=== PATIENT | male | born 1985 | race Caucasian/White ===

== ENCOUNTER 2025-02-05 14:10 | Emergency (ER) | payer SELFPAY ==
[~2025-02-05] VITALS: Ht 167.6 cm; Wt 111.0 kg
[2025-02-05 14:19] VITALS: BP 151/67; PULSE 113; RESP 17; TEMP 98.2; O2SAT 94
== END 2025-02-05 16:26 | disposition left against medical advice (07) ==
LOC: ER 14:10
DX: S80.862A Insect bite (nonvenomous), left lower leg, initial encounter (principal); X58.XXXA Exposure to other specified factors, initial encounter; Y93.89 Activity, other specified; Y92.89 Other specified places as the place of occurrence of the external cause; Y99.8 Other external cause status